=== PATIENT | female | born 1985 | race Caucasian/White ===

== ENCOUNTER 2017-09-03 19:37 | Emergency (ER) | payer SELFPAY ==
[2017-09-03] MEDS: IV NORMAL SALINE 1000ML BAG 1,000 ML IV (20:25)
[2017-09-03] MEDS: ASPIRIN CHEWABLE 81 MG TABLET. PO (20:25)
[2017-09-03 20:26] LABS: ADD MAN DIFF? NO
[2017-09-03 20:30] LABS: BASO # 0.1 x10^3/uL (0.0-0.2); BASO % 1 % (0-3); EOS # 0.1 x10^3/uL (0.0-0.7); EOS % 1 % (0-3); HEMATOCRIT 41.9 % (36.0-47.0); HEMOGLOBIN 14.2 g/dL (12.0-15.5); LYMPH # 3.6 x10^3/uL (1.0-4.8); LYMPH % 38 % (24-48); MEAN CORPUSCULAR HEMOGLOBIN 30 pg (25-35); MEAN CORPUSCULAR HGB CONC 34 g/dL (31-37); MEAN CORPUSCULAR VOLUME 89 fL (79-100); MONO # 0.9 x10^3/uL (0.0-1.1); MONO % 9 % (0-9); NEUT # 4.9 x10^3uL (1.8-7.7); NEUT % 52 % (31-73); PLATELET COUNT 269 x10^3/uL (140-400); RED BLOOD COUNT 4.72 x10^6/uL (3.50-5.40); RED CELL DISTRIBUTION WIDTH 12.8 % (11.5-14.5); WHITE BLOOD COUNT 9.5 x10^3/uL (4.0-11.0)
[2017-09-03 20:37] LABS: PARTIAL THROMBOPLASTIN TIME 28 SEC (24-38); PROTHROMBIN TIME PATIENT 12.8 SEC (11.7-14.0)
[2017-09-03 20:38] LABS: BILIRUBIN,URINE NEGATIVE (NEG); CLARITY,URINE CLEAR; COLOR,URINE YELLOW; GLUCOSE,URINE NEGATIVE (NEG); NITRITE,URINE NEGATIVE (NEG); PROTEIN,URINE NEGATIVE (NEG-TRACE)
[2017-09-03 20:39] LABS: URINE HCG POC HCG NEGATIVE (Negative)
[2017-09-03 20:40] LABS: D-DIMER 0.49 ug/mlFEU (0.00-0.50)
[2017-09-03 20:41] LABS: ANION GAP 8 (6-14); BLOOD UREA NITROGEN 14 mg/dL (7-20); BUN/CREATININE RATIO 14 (6-20); CALCIUM 9.2 mg/dL (8.5-10.1); CARBON DIOXIDE 27 mmol/L (21-32); CHLORIDE 103 mmol/L (98-107); GFR 65.1; GLUCOSE 91 mg/dL (70-99); POTASSIUM 3.6 mmol/L (3.5-5.1); SODIUM 138 mmol/L (136-145)
[2017-09-03 20:44] LABS: RBC,URINE 0 /HPF (0-2); WBC,URINE 0 /HPF (0-4)
[2017-09-03 20:45] LABS: BACTERIA,URINE FEW /HPF (0-FEW); SQUAMOUS EPITHELIAL CELL,UR FEW /LPF
[2017-09-03 20:48] LABS: ALK PHOS 86 U/L (46-116); ALT (SGPT) 79 U/L (14-59); AST (SGOT) 30 U/L (15-37); LIPASE 197 U/L (73-393); MAGNESIUM 2.1 mg/dL (1.8-2.4); TOTAL BILIRUBIN 0.3 mg/dL (0.2-1.0); TOTAL PROTEIN 7.9 g/dL (6.4-8.2)
[2017-09-03 20:53] LABS: TROPONINI < 0.017 ng/mL (0.000-0.055)
[2017-09-03 20:59] LABS: NT-PRO BNP 46 pg/mL (0-124)
[2017-09-03 20:59] LABS: CKMB INDEX 0.8 % (0-4); CKMB MASS 1.4 ng/mL (0.0-3.6); CREATINE KINASE 178 U/L (26-192)
[2017-09-03] MEDS: KETOROLAC 30 MG/ML INJ. IV (22:37)
[2017-09-03 23:03] LABS: TROPONINI < 0.017 ng/mL (0.000-0.055)
== END 2017-09-03 23:20 | disposition home or self-care (01) ==
LOC: ER 19:37
DX: R07.89 Other chest pain (principal); M25.511 Pain in right shoulder; E78.00 Pure hypercholesterolemia, unspecified
CPT/HCPCS: 36415; 71046; 80053; 81001; 81025; 82553; 83690; 83735; 83880; 84484; 85025; 85379; 85610; 85730; 93005; 96374; 99285-25; J1885; J7030